=== PATIENT | male | born 1960 | race Caucasian/White ===

== ENCOUNTER 2019-08-11 15:14 | Outpatient (CLI) | payer OTHER, SELFPAY ==
--- NOTE | 2019-08-11 15:29 | XR_ITS ---
WS: [id number] THORACIC SPINE TECHNIQUE: AP and lateral views are performed. HISTORY: BACK PAIN, THORACIC REGION COMPARISON: None available. Very slight increase in thoracic kyphosis. Mild disc space narrowing and endplate osteophytes in the mid to lower thoracic spine. No fracture. Pedicles are all identified. No soft tissue abnormalities. XR/XR thoracic spine 3V* [id number] IMPRESSION: Mild spondylosis, most significant in the mid to lower thoracic spine.
--- NOTE | 2019-08-11 15:29 | XR_ITS ---
WS: [id number] LATERAL CERVICAL SPINE: 5 view. Lateral radiographs are performed in upright neutral, flexion and extension to the patient's toleranc e. AP views. HISTORY: CERVICAL RADICULOPATHY COMPARISON: 03/24/2006 Straightening of the normal cervical lordosis. C3 anterolisthesis by 3.4 mm on neutral imaging. Durin g flexion anterolisthesis of 2.8 mm and near normal alignment during extension. C4 and C5 retrolisthesis by up to 1.8 mm. With flexion and extension the retrolisthesis does not randolph ge significantly. Advanced degenerative disc disease at C4-5, C5-6 and C6-7. Bilateral masses of C1 and C2 are aligned. Odontoid is intact. XR/XR cervical spine 4-5V [id number] IMPRESSION: 1. Mild flexion and extension instability at the C3 level. 2. C4 and C5 retrolisthesis without instability.
== END 2019-08-11 15:15 | disposition home or self-care (01) ==
LOC: WPI 15:20
PROVIDERS: PCP Family Medicine; Visit Provider Family Medicine
DX: M47.894 Other spondylosis, thoracic region (principal); M54.12 Radiculopathy, cervical region; M53.2X2 Spinal instabilities, cervical region; M54.6 Pain in thoracic spine
CPT/HCPCS: 72050; 72072

== ENCOUNTER 2022-05-05 17:41 | Outpatient (CLI) | payer OTHER, SELFPAY ==
--- NOTE | 2022-05-05 17:57 | XR_ITS ---
WS: [id number] Exam: XR knee RT 3V* [id number] Date/Time of Exam: 05/05/2022 5:57 PM Reason For Exam: Right knee pain No acute fracture or dislocation. Advanced tricompartmental degenerative change. An orthopedic nail i s noted in the lateral tibial plateau. There are probable loose joint bodies present. Moderate effusi on in the suprapatellar bursa. XR/XR knee RT 3V* [id number] IMPRESSION: 1. Moderately severe tricompartmental DJD. 2. No fracture. 3. Joint effusion in the suprapatellar bursa. There may be a popliteal cyst pre sent.
== END 2022-05-05 17:42 | disposition home or self-care (01) ==
LOC: RAD 17:45
PROVIDERS: PCP Family Medicine; Visit Provider Family Medicine
DX: M17.11 Unilateral primary osteoarthritis, right knee; M25.461 Effusion, right knee
CPT/HCPCS: 73562

== ENCOUNTER 2022-06-20 15:56 | Outpatient (CLI) | payer OTHER, SELFPAY ==
--- NOTE | 2022-06-20 15:30 | CT_ITS ---
WS: [id number] CT RIGHT KNEE, NONCONTRAST TECHNIQUE: Noncontrast CT of the RIGHT knee to include the RIGHT hip and ankle. CLINICAL INFORMATION: pre op protocol COMPARISON: May 05, 2022 DLP: 940.[address] scans at [facility] use at least one of these dose optimization techniques: automated e xposure control; mA and/or kV adjustment per patient size (includes targeted exams where dose is matc hed to clinical indication); or iterative reconstruction. FINDINGS: Moderate to advanced tricompartmental arthritis worse in the lateral joint compartment and patellofem oral articulation. Hypertrophic changes along the joint line. Fixation screw in the lateral tibial pl ateau. Vascular calcification. Moderate suprapatellar effusion. Hypertrophic patella. Mild degenerati ve narrowing both hips. Normal pubic rami. Prominent prostate measuring 5.7 cm in maximum dimension. Correlation PSA. Sigmoid diverticulosis. CT/CT knee RT ROBERTA IMPRESSION: 1. Images obtained for preoperative purposes. 2. Moderate to advanced tricompartmental arthritis RIGHT knee. 3. Enlarged prostate measuring 5.7 cm with evidence of bladder outlet obstruct ion. Recommend correlation PSA.
== END 2022-06-20 15:57 | disposition home or self-care (01) ==
PROVIDERS: PCP Family Medicine; Visit Provider Orthopaedic Surgery
DX: Z01.818 Encounter for other preprocedural examination (principal); M17.11 Unilateral primary osteoarthritis, right knee; N40.0 Benign prostatic hyperplasia without lower urinary tract symptoms
CPT/HCPCS: 73700

== ENCOUNTER 2022-06-24 13:16 | Outpatient (CLI) | payer OTHER, SELFPAY ==
--- NOTE | 2022-06-24 13:39 | CT_ITS ---
WS: [id number] CT RIGHT KNEE, NONCONTRAST TECHNIQUE: Noncontrast CT of the RIGHT knee to include the RIGHT hip and ankle. [facility] PROTOCOL CLINICAL INFORMATION: PRE OP PROTOCOL WITH METAL SUBTRACTION COMPARISON: June 20, 2022 DLP: 1019.[address] scans at [facility] use at least one of these dose optimization techniques: automated e xposure control; mA and/or kV adjustment per patient size (includes targeted exams where dose is matc hed to clinical indication); or iterative reconstruction. FINDINGS: Moderate to advanced tricompartmental arthritis worse in the lateral joint compartment and patellofem oral articulation. Hypertrophic changes along the joint line. Fixation screw in the lateral tibial pl ateau. No evidence of screw loosening. Vascular calcification. Moderate suprapatellar effusion. Hypertrophic patella. Mild degenerative narr owing both hips. Normal pubic rami. Prominent prostate measuring 5.7 cm in maximum dimension. Correla tion PSA. Sigmoid diverticulosis. CT/CT knee RT [facility] IMPRESSION: No significant changes compared to previous. 1. Images obtained for preoperative purposes. 2. Moderate to advanced tricompartmental arthritis RIGHT knee. 3. Enlarged prostate measuring 5.7 cm with evidence of bladder outlet obstructi on. Recommend correlation PSA.
== END 2022-06-24 13:17 | disposition home or self-care (01) ==
PROVIDERS: PCP Family Medicine; Visit Provider Orthopaedic Surgery
DX: M13.861 Other specified arthritis, right knee; N40.0 Benign prostatic hyperplasia without lower urinary tract symptoms; Z01.818 Encounter for other preprocedural examination
CPT/HCPCS: 73700

== ENCOUNTER 2022-06-26 10:00 | Observation (INO) | payer OTHER, SELFPAY ==
[2022-06-19 13:12] VITALS: BMI 25.1
--- NOTE | 2022-06-19 15:00 | ANES.PREANE2 ---
Pre-Anesthetic Assessment Height/Weight: Height 1.78 m Weight 79.379 kg Operation Date: 06/26/22 07:00 Proposed Procedures p Hussein Robot Total Knee Arthroplasty 32763,M17.11(Right) - Beto Orta MD Familial anesthetic complications: none Was Beta Paula taken within 24 hours: N/A Was Clonidine taken within 24 hours: N/A Social No alcohol and No tobacco Exam alert, oriented x 3, clear to auscultation bilaterally and regular rate & rhythm Airway Submandibular: within normal limits Cervical ROM: Other (very mild limitation secondary to ACDF) Mallampati: Class II Dentition: chipped Musc/skel Osteoarthritis/DJD Neuropsych Neuropathy (right arm muscular atrophy) Anesthetic Plan ASA status: 2 Anesthesia: Regional (specify below) (SAB with adductor blk) Medications/Allergies Home Medications Medication Instructions Recorded Confirmed Last Taken Type hydrocodone 5 mg-acetaminophen 325 1 tab PO Q6H PRN pain 8 days #30 05/12/22 06/19/22 Unknown Rx mg tablet tabs meloxicam 15 mg tablet 15 mg PO DAILY #30 tabs 06/05/22 06/19/22 Unknown Rx Allergies Allergy/AdvReac Type Severity Reaction Status Date / Time No Known Allergies Allergy Verified 06/19/22 13:11 [facility] Anesthesia Social History Smoking and tobacco status: never smoked Data Anesthesia Cardiac Studies: No Data to Display
[2022-06-26] VITALS (11 sets, daily range): BP systolic 101–143; BP diastolic 64–85; PULSE 69–85; RESP 10–18; TEMP 36.4–36.8; O2SAT 95–98; BMI 25.5
[2022-06-26] MEDS: sodium chloride 0.9% 1,000 ML 30 ML IV (06:03)
[2022-06-26] MEDS: CELEcoxib 200 mg Capsule 400 MG PO (06:04)
[2022-06-26] MEDS: gabapentin 300 mg Capsule PO (06:04)
[2022-06-26] MEDS: oxyCODONE 20 mg ER (12 HR) Tablet PO (06:04)
[2022-06-26] MEDS: acetaminophen 500 mg Tablet 1000 MG PO ×2 (06:04→14:17)
--- NOTE | 2022-06-26 06:42 | P.ANESUD_ITS ---
Pre-Anesthetic Update Pre-Anesthetic Assessment: Date of Surgery/Procedure: 06/26/22 Preop Lesli gnosis: Osteoarthritis right knee Proposed Procedure: Operation Date: 06/26/22 07:00 Proposed Procedures p Hussein Robot Total Knee Arthroplasty 28085,M17.11(Right) - Beto Orta MD Any changes to Pre-Anesthetic Assessment?: No Last Intake: Intake Last Liquid Date 06/25/22 Last Liquid Time 20:00 Last Solid Date 06/25/22 Last Solid Time 20:00 Vitals: Oxygen Delivery Me thod 06/26/22 05:52 Exam: Pre-Anes Outpt Exam: alert, oriented x 3, clear to auscultation bilaterally and regular rate & rhythm Cardiac Studies: No Data to Display
--- NOTE | 2022-06-26 06:43 | ANES.PROC ---
Anesthesia Procedures Procedure/Date: 06/26/22 Nerve Block ^: Nerve Block 1: Main Anesthesia: general anesthesia Time Out Performed: Yes Consent: requested by attending/covering physician, from patient, from other, risks and benefits reviewed and patient agrees to proceed Nerve block location: adductor canal (R) Anesthesia monitors applied: pulse oximetry, EKG, BP cuff and oxygen Nerve block position: supine Anesthetic Used: ropivicaine 0.5% (30 ml) and with decadron (4 mg) Ultrasound used to: recognize landmarks and visualize and ID femerol nerve Nerve Stimulator Used?: No Interscalene/Femoral BLK: 4 stimuplex 21 g needle used for position and inplane approach, visualize local anesthetic spread and no vascular puncture identified Injection: neg aspiration of heme Patient Tolerated Procedure: well Complications: none
--- NOTE | 2022-06-26 06:59 | W.PM.OPSFHP ---
Same Day Surgery H&P Indication for Procedure/HPI DATE OF PROCEDURE: June 26, 2022 CHIEF COMPLAINT/INDICATIONFOR SURGICAL PROCEDURE: Here today for elective right total knee arthroplasty PREOP DIAGNOSIS: Osteoarthritis right knee PLANNED PROCEDURE: Operation Date: 06/26/22 07:00 Proposed Procedures p Hussein Robot Total Knee Arthroplasty 40885,M17.11(Right) - Beto Orta MD He states that his pain has remained constant. He states that the injection gave him good relief however temporary.? He states with any activity his knee will flareup.? He attempted to get out in the yard even for short period of time.? He had severe pain.? He states when the pain is severe he can scarcely do anything.? He states he had event he was close to attend last week but due to the pain in his knee he really could not even get out of the car and left hand.? He now is ready for knee Medications/Allergies* Allergies/Adverse Reactions Allergy/AdvReac Type Severity Reaction Status Date / Time No Known Allergies Allergy Verified 06/19/22 13:11 Current Medications: Generic Name Dose Route Start Last Admin Trade Name Freq PRN Reason Stop Dose Admin Sodium Chloride 1,000 mls @ 30 mls/hr 06/26/22 05:45 06/26/22 06:03 Sodium Chloride 0.9% IV 06/27/22 05:44 30 mls/hr .Q24H ALDO Administration Pertinent History/Comorbid Conditions* Social History Smoking and tobacco status: never smoked Pertinent Exam Findings alert, oriented x 3, clear to auscultation bilaterally and regular rate & rhythm KNEE [right] Large effusion Healed medial and lateral scars Really no particular tender RANGE OF MOTION: ? ? ? EXAMINED LIMB ? Extention: 15 ? Flexion: 80 Crepitance his knee is brought through range of motion Collateral ligaments are stable. MOTOR: Strong quadriceps hamstrings tibialis anterior and extensor houses longus strength SENSATION: Intact to light touch Recommendations Surgery/Procedure today Coding Level of Care Code Acute [employer] Therapist for Wesley Good
[2022-06-26] MEDS: ceFAZolin 2,000 MG in sodium chloride 0.9% (plus) 50 ML 100 MG IV (07:17)
[2022-06-26] MEDS: tranexamic acid 1,000 mg/10mL SDV 1000 MG IV (07:40)
[2022-06-26] MEDS: tranexamic acid 1,000 mg/10mL SDV 1000 MG XX (08:07)
[2022-06-26] MEDS: ketorolac 30 mg/mL INJ XX (08:08)
[2022-06-26] MEDS: EPINEPHrine 1 mg/mL INJ XX (08:09)
[2022-06-26] MEDS: sodium chloride 0.9% 100 mL Bag XX (08:10)
--- NOTE | 2022-06-26 09:55 | P.OP_ITS ---
Operative Report Date of procedure: June 26, 2022 Pre-op diagnosis: Preop Diagnosis Osteoarthritis right knee Post-op diagnosis: same Post-op diagnosis: Same Post-op findings: Same Procedure done: Right total knee arthroplasty Implants: Yovani Triathalon total knee arthroplasty components were used includin) Size 7 triathalon cruciate retaining femoral component 2) Size 8 Tritanium tibial component 3) Size 8/9 mm thickness CS tibial bearing insert Pathology: none sent Surgeon: Beto Orta Chief Service Dispatcher: Dawood Benjamin Chief Service Dispatcher: The nurse practitioner the nurse practitioner assisted with critical portions of the case including positioning, draping, exposure, component implantation, closure and dressing application and is present through the entirety of the case. Anesthesia: Nerve Block (Spinal, adductor canal block) Estimated blood loss (mL): 200 Findings: The patient eburnated bone in both the medial and lateral compartments. Thinning of his patellar cartilage. Condition: stable Disposition: PACU Procedure: The patient was taken to the operating room. Patient was given 1 g of tranexamic acid and 2 g of Ancef. The above anesthesia provided by the anesthesia service. A timeout was performed. The patient was prepped and draped in the usual fashion with the lower extremity exposed. A anterior incision was made, midline, from a point proximal to the patella to the distal tibial tubercle. The knee was entered through a medial parapatellar approach. The patella could be displaced laterally and the knee flexed. The patellar fat pad was resected to provide better visibility. Retractors were placed medially and laterally adjacent to the tibial plateau. At a point approximately 8 cm above the patella, 2 small incisions were made with a scalpel blade and 2 long threaded pins were placed into the anterior medial femur engaging both cortices. The femoral arrays were placed over these pins and secured. At a point 8 cm distal to the tibial tubercle. 2 shorter bicortical threaded pins were placed across the anterior medial tibia and the tibial arrays placed. A checkpoint was made just proximal and medial to the medial femoral condyle and just medial to the tibial plateau. Small osteotomes were placed in the joint in both flexion and extension to determine ligamentous laxity. The patient had a 5 degree flexion contracture. The femoral component was moved moved slightly distal leaving an additional millimeter of gap in extension opposed to flexion to accommodate the flexion contracture.. The ROBERTA robot was then introduced to the field and the femur and tibia cut in accordance with our plan. Lysing straight osteotomes osteophytes were removed from the posterior medial and lateral femoral condyles. He [employer] Fastseal was then used to provide hemostasis, particularly about the posterior capsule. A trial with the above components provided excellent stability and full range of motion. The femur was then prepared for the femoral pegs of the component in the tibia for the tibial component. The femur and tibia were then press-fit into place. An osteotome was used to remove the lateral 8 mm of the patella to minimize chances of later impingement. A neurectomy was accomplished circumferentially about the patella with electrocautery and lateral osteophytes removed. Surfaces were cleaned with a gentamicin solution. The femur and tibia were then press-fit into place. The posterior capsule and collateral ligaments were then injected with a solution of 100 mL of 0.2% ropivacaine, 1 mL of a 1:1000 epinephrine solution, 30 mg of Toradol, and 1 g of tranexamic acid. Final polyethylene component was then snapped into place into the tibia. The extensor retinaculum was closed with a running 1 Stratafix interrupted 1 Ethibond. The subcutaneous tissues were closed with 2-0 Vicryl and the skin was closed with a running 4-0 Stratafix. The wound was covered with a Dermabond Prineo dressing. It was covered with 4xrs and a compressive Tubigauze was ap plied. The patient was taken to recovery room in stable condition.
--- NOTE | 2022-06-26 09:55 | XR_ITS ---
WS: [id number] Exam: XR knee RT 1-2V [id number] Date/Time of Exam: 06/26/2022 10:01 AM Reason For Exam: Right Total Knee arthroplasty Comparison 05/05/2022. A knee prosthesis has been placed and appears to be in excellent position. Postoperative changes in the adjacent soft tissues. An orthopedic nail noted in the lateral tibial plateau. Screw holes noted in the upper tibia and lower femur. XR/XR knee RT 1-2V [id number] IMPRESSION: 1. Right knee arthroplasty in satisfactory position.
--- NOTE | 2022-06-26 12:29 | ANE.PACU2 ---
Inpatient post-anesthesia follow up: Airway intact: Yes Vital signs: Temperature 97.5 F Pulse Rate 69 Respiratory Rate 15 Blood Pressure 143/85 Pulse Oximetry 98 Oxygen Delivery Me thod Room Air Oxygen Flow Rate 6 Fraction of Inspir ed Oxygen Hydration adequate: Yes Nausea and vomiting: No Pain level: 1 Mental status: Baseline
--- NOTE | 2022-06-26 16:45 | PC.OT ---
OT EVALUATION ORDERS RECEIVED. PATIENT DISCHARGED BEFORE EVALUATION COULD BE COMPLETED.
== END 2022-06-26 16:15 | disposition home or self-care (01) ==
LOC: MEDSURG 10:00
PROVIDERS: Admitting Provider Orthopaedic Surgery; PCP Family Medicine; Visit Provider Orthopaedic Surgery
PROC: 8E0Y0CZ Robotic Assisted Procedure of Lower Extremity, Open Approach (ICD-10-PCS; CPT 27447; principal; 2022-06-26 07:00)
DX: M17.11 Unilateral primary osteoarthritis, right knee (principal)
CPT/HCPCS: 27447; 73560; 97161; C1713; C1776; G0378; J0171; J0690; J1100; J1580; J1885; J2370; J2704; J2795; J7030

== ENCOUNTER → 2022-07-22 09:07 | Outpatient (BNVA) | payer OTHER, SELFPAY | PROVIDERS: PCP Family Medicine; Visit Provider Orthopaedic Surgery | DX: Z96.651 Presence of right artificial knee joint (principal) | CPT/HCPCS: 73560; 73565 ==